=== PATIENT | female | born 1950 | race Caucasian/White ===

== ENCOUNTER 2023-12-10 16:06 | Observation (INO) ==
[2023-12-10 16:41] LABS: Basophils # (auto) 0.08 K/uL (0.00-0.20); Basophils % (auto) 0.9 %; Eosinophils # (auto) 0.37 K/uL (0.00-0.50); Eosinophils % (auto) 4.1 %; Hematocrit (blood only) 42.5 % (37.0-47.0); Hemoglobin 13.3 g/dl (12.0-16.0); Immature Granulocytes # (auto) 0.03 K/uL (0.01-0.20); Immature Granulocytes % (auto) 0.3 %; Lymphocytes # (auto) 2.29 K/uL (1.20-3.40); Lymphocytes % (auto) 25.5 %; Mean Corpuscular Hemoglobin 28.7 pg (25.0-34.0); Mean Corpuscular Hgb Conc 31.3 g/dL (32.0-36.0); Mean Corpuscular Volume 91.6 fL (80.0-100.0); Mean Platelet Volume 10.1 fL (9.4-12.4); Monocytes # (auto) 0.64 K/uL (0.11-0.59); Monocytes % (auto) 7.1 %; Neutrophils # (auto) 5.56 K/uL (1.40-6.50); Neutrophils % (auto) 62.1 %; Platelet Count 316 K/uL (130-400); RDW Coefficient of Variation 13.6 % (11.5-14.5); RDW Standard Deviation 45.5 fL (36.4-46.3); Red Blood Count 4.64 M/uL (4.20-5.40); White Blood Count 8.97 K/ul (4.8-10.8)
[2023-12-10 16:48] LABS: INR 0.9 (0.9-1.1); Partial Thromboplastin Time 27 Seconds (21-31); Prothrombin Time 10.1 Seconds (9.0-12.0)
[2023-12-10 16:58] LABS: Alanine Aminotransferase 10 U/L (7-52); Albumin Globulin Ratio 1.1 (0.9-2); Albumin Level 3.7 gm/dl (3.4-5.0); Alkaline Phosphatase 104 U/L (34-104); Anion Gap 5 (3-11); Aspartate Aminotransferase 16 U/L (13-39); BUN Creatinine Ratio 21.8 (10-20); Bilirubin,Total 0.2 mg/dl (0.2-1.0); Blood Urea Nitrogen 19 mg/dl (6-23); Calcium 9.2 mg/dl (8.6-10.3); Carbon Dioxide 28 mmol/L (21-32); Chloride 108 mmol/L (98-107); Est GFR (African American) 76.6 ml/min; Est GFR (Non-African American) 66.1 ml/min; Globulin 3.3 gm/dl (2.5-4.0); Glucose 89 mg/dl (70-99(Fasting)); Potassium 4.2 mmol/L (3.5-5.1); Sodium 141 mmol/L (136-145)
--- NOTE | 2023-12-10 18:26 | Emergency Department Note ---
Impression & Plan Fatigue, Hypotension, Pulmonary edema, Elevated brain natriuretic peptide (BNP) level ED Provider Note ED Provider Note NAME: GABBI FIELD AGE:73 SEX: Female : 1950 ARRIVES VIA: EMS INFORMANT: Patient ED PROVIDER(s): Cathi Palma DO CHIEF COMPLAINT: Hypotension, fatigue HPI: This is a 73-year-old female brought in by EMS due to family's concern for low blood pressure and increased fatigue today. At bedside patient denied any concerns and was asking to be discharged. She states she did not know why she was sent in. Upon arrival with family at bedside they state over the last 2 weeks she has had intermittent low blood pressure readings at home as they checked her blood pressure frequently. They state today she seemed much more fatigued and somnolent. 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 He denies any recent change in medications. They deny fevers, chills, or URI symptoms. No change in urine or stools. Patient denies any pain. Family states she did complain of a headache earlier in the day although frequently complains of headaches. No falls or trauma. They state patient typically moves about the house in her wheelchair. She does live at home however they have 24/7 caregivers in addition to family who help. PAST MEDICAL HISTORY:See Below PAST SURGICAL HISTORY:See Below FAMILY HISTORY:See Below SOCIAL HISTORY:See Below HOME MEDICATIONS:See Below ALLERGIES:See Below VITALS:See Below PHYSICAL EXAMINATION: GENERAL: alert, well appearing, well nourished, no distress, non-toxic EYE EXAM: normal conjunctiva, PERRL and EOM's grossly intact OROPHARYNX: no exudate, no erythema, lips, buccal mucosa, and tongue normal and mucous membranes are moist NECK: supple, no nuchal rigidity, no adenopathy, non-tender LUNGS: Clear to auscultation. Normal chest wall mechanics, no w/r/r HEART: no murmurs, S1 normal and S2 normal ABDOMEN: abdomen soft, non-tender, normo-active bowel sounds, no masses, no rebound or guarding. SKIN: no rashes, petechiae, orbruising UPPER EXTREMITIES: upper extremities are grossly normal. FROM LUE, nml pulses b/l. Right upper extremity hemiparesis with muscular atrophy and contraction with arm held in flexion LOWER EXTREMITIES: No pitting edema. FROM LLE, nml pulses b/l. Right lower extremity weakness and muscular atrophy NEURO EXAM: Normal sensorium, cranial nerves II-XII grossly intact, normal speech, no facial droop,nogross weakness of arms, no gross weakness of legs. Gross sensation intact. No ataxia. Vital Signs: reviewed and remarkable Differential Diagnosis: dehydration, stroke, anemia, hypoglycemia, hyponatremia, hypernatremia, urinary tract infection, pneumonia, bronchitis, sepsis, gastroenteritis, additional abdominal pathology, metabolic abnormalities, as well as others were considered MEDICAL DECISION MAKING: This is a 73-year-old female with a history of prior large stroke who presents emergency department via EMS due to family concern for hypotension, and increased fatigue. Patient was awake and alert and able to answer questions on arrival. She was normotensive and other vital signs stable. Labs drawn and sent, IV established, EKG and chest ray performed bedside interpreted by me and patient monitored on telemetry. Nasal swab added to rule out other acute URI. Urine collected additionally. Patient noted to have bilateral pulmonary edema on chest x-ray. Troponin and BNP added additionally. Patient's BNP was noted to be elevated. Given patient had no prior cardiac history and is unclear what may have started this, we discussed additional inpatient management. Patient and family at bedside verbalized understanding were in agreement. Case discussed with the hospitalist team for additional evaluation and management. Consultation(s): 2301: Discussed with Dr. Conklin, [facility] hospitalist team, for additional evaluation and management. ER Treatment Provided: See below Diagnostics Interpreted By Me: -ECG: Sinus bradycardia at 58, normal axis, normal intervals, no acute ST/T wave changes -Cardiac Monitoring: An order was placed for continuous cardiac monitoring. The monitor shows a rate of 62 with normal sinus rhythm. -Laboratory studies: As stated above and show below. -Imaging studies: Chest x-ray: No obvious infiltrate or pleural effusion, appearance of bilateral pulmonary edema noted, no wide mediastinum Triage Nursing Note Reviewed Prior/Outside Records Reviewed Past Med/Surg History Social History Smoking Status: Never smoker Do You Dip or Chew Tobacco: No; Hx Alcohol Use: No Hx Substance Use: No Preferred Language: Jordanian Communication Ability: Effective Casino Accountant Required: No Beliefs That Will Affect Care: None Current Living Situation: Spouse and Significant Other Current Living Situation Comment: 25/02 caregiver Feels Safe at Home: Yes Safety Concerns: Feels Safe At This Time Assistive Devices: Wheelchair Allergies Allergies Allergy/AdvReac Type Severity Reaction Status Date / Time azithromycin Allergy Unknown CAN'T Verified 12/11/23 07:40 REMEMBER Penicillins Allergy Unknown CAN'T Verified 12/11/23 07:40 REMEMBER simvastatin Allergy Unknown CAN'T Verified 12/11/23 07:40 REMEMBER baclofen AdvReac Intermediate LETHARGY Verified 12/11/23 07:40 levetiracetam AdvReac Intermediate LETHARGY Verified 12/11/23 07:40 sulfamethoxazole AdvReac Intermediate NAUSEA/VOMI Verified 12/11/23 07:40 [From Bactrim] TING tramadol AdvReac Intermediate TOO Verified 12/11/23 07:40 SLEEPY, LOST APPETITE trimethoprim [From Bactrim] AdvReac Intermediate NAUSEA/VOMI Verified 12/11/23 07:40 TING mirtazapine AdvReac Unknown CAN'T Verified 12/11/23 07:40 REMEMBER Home Meds Home Medications Medication Instructions Recorded Confirmed acetaminophen 500 mg tablet 1,000 mg PO BID 10/28/23 10/28/23 (Tylenol Extra Strength) aspirin 325 mg tablet,delayed 325 mg PO DAILY 10/28/23 10/28/23 release citalopram 40 mg tablet (Celexa) 40 mg PO DAILY 10/28/23 10/28/23 docusate sodium 100 mg capsule 100 mg PO BID 10/28/23 10/28/23 gabapentin 400 mg capsule 400 mg PO TID 10/28/23 10/28/23 melatonin 5 mg tablet 5 mg PO HS 10/28/23 10/28/23 metoprolol succinate 25 mg 25 mg PO DAILY 10/28/23 10/28/23 tablet,extended release 24 hr multivitamin 1 tab PO DAILY 10/28/23 10/28/23 ondansetron HCl 8 mg tablet 8 mg PO Q8H PRN NAUSEA/VOMITING 10/28/23 10/28/23 pantoprazole 40 mg tablet,delayed 40 mg PO DAILY 10/28/23 10/28/23 release polyethylene glycol 3350 17 17 g PO DAILY PRN Constipation 10/28/23 10/28/23 gram/dose oral powder (Miralax) potassium chloride 10 mEq 10 meq PO BID 10/28/23 10/28/23 tablet,extended release(part/cryst) (Klor-Con M) topiramate 100 mg tablet 100 mg PO BID 10/28/23 10/28/23 acetaminophen 500 mg tablet 1,000 mg PO BID 12/10/23 12/10/23 (Tylenol Extra Strength) aspirin 325 mg tablet 325 mg PO DAILY 12/10/23 12/10/23 citalopram 40 mg tablet (Celexa) 40 mg PO DAILY 12/10/23 12/10/23 gabapentin 400 mg capsule 400 mg PO TID 12/10/23 12/10/23 melatonin 5 mg tablet 5 mg PO HS 12/10/23 12/10/23 metoprolol succinate 25 mg 25 mg PO DAILY 12/10/23 12/10/23 tablet,extended release 24 hr multivitamin 1 tab PO DAILY 12/10/23 12/10/23 ondansetron HCl 8 mg tablet 8 mg PO Q8H PRN Nausea 12/10/23 12/10/23 pantoprazole 40 mg tablet,delayed 40 mg PO DAILY 12/10/23 12/10/23 release polyethylene glycol 3350 17 17 g PO DAILY PRN Constipation 12/10/23 12/10/23 gram/dose oral powder (Miralax) potassium chloride 10 mEq 10 meq PO BID 12/10/23 12/10/23 tablet,extended release(part/cryst) (Klor-Con M) topiramate 100 mg tablet 100 mg PO BID 12/10/23 12/10/23 Results & Data (ED) Vital Signs Vital Signs - 24 hr 12/11/23 00:00 12/11/23 00:00 12/11/23 00:24 Pulse Rate 58 L 57 L Pulse Rate [Left Apical] 58 L Pulse Rate from SpO2 Sensor 57 L 56 L Pulse Rhythm [Left Apical] Regular Pulse Strength [Left Apical] Normal Respiratory Rate 22 16 21 Respiratory Effort / Characteristics Non-Labored Respiratory Depth Normal Respiratory Pattern Regular Blood Pressure Blood Pressure [Left Arm] 144/58 H Blood Pressure Mean Blood Pressure Mean [Left Arm] 86 Pulse Oximetry 95 92 97 Oxygen Delivery Method Room Air 12/11/23 00:24 12/11/23 00:30 Pulse Rate 56 L Pulse Rate [Left Apical] Pulse Rate from SpO2 Sensor 54 L Pulse Rhythm [Left Apical] Pulse Strength [Left Apical] Respiratory Rate 18 Respiratory Effort / Characteristics Respiratory Depth Respiratory Pattern Blood Pressure 144/58 H Blood Pressure [Left Arm] Blood Pressure Mean 78 Blood Pressure Mean [Left Arm] Pulse Oximetry 91 Oxygen Delivery Method Laboratory Data 12/11/23 06:14 12/11/23 06:14 Lab Results 12/10/23 12/10/23 12/10/23 Range/Units 16:25 20:08 20:11 WBC 8.97 (4.8-10.8) K/ul RBC 4.64 (4.20-5.40) M/uL Hgb 13.3 (12.0-16.0) g/dl Hct 42.5 (37.0-47.0) % MCV 91.6 (80.0-100.0) fL MCH 28.7 (25.0-34.0) pg MCHC 31.3 L (32.0-36.0) g/dL RDW Std Deviation 45.5 (36.4-46.3) fL RDW Coeff of Carol 13.6 (11.5-14.5) % Plt Count 316 (130-400) K/uL MPV 10.1 (9.4-12.4) fL Immature Gran % (Auto) 0.3 % Neut % (Auto) 62.1 % Lymph % (Auto) 25.5 % [place] % (Auto) 7.1 % Eos % (Auto) 4.1 % Baso % (Auto) 0.9 % Neut # (Auto) 5.56 (1.40-6.50) K/uL Lymph # (Auto) 2.29 (1.20-3.40) K/uL [place] # (Auto) 0.64 H (0.11-0.59) K/uL Eos # (Auto) 0.37 (0.00-0.50) K/uL Baso # (Auto) 0.08 (0.00-0.20) K/uL Immature Gran # (Auto) 0.03 (0.01-0.20) K/uL PT 10.1 (9.0-12.0) Seconds INR 0.9 (0.9-1.1) APTT 27 (21-31) Seconds PTT Ratio 1.0 Sodium 141 (136-145) mmol/L Potassium 4.2 (3.5-5.1) mmol/L Chloride 108 H (98-107) mmol/L Carbon Dioxide 28 (21-32) mmol/L Anion Gap 5 (3-11) BUN 19 (6-23) mg/dl Creatinine 0.87 (0.6-1.2) mg/dl Est Cr Clr Drug Dosing Not Reportable Est GFR ( Amer) 76.6 ml/min Est GFR (Non-Af Amer) 66.1 ml/min BUN/Creatinine Ratio 21.8 H (10-20) Glucose 89 (70-99(Fasting)) mg/dl Calcium 9.2 (8.6-10.3) mg/dl Magnesium 2.2 (1.7-2.4) mg/dl Total Bilirubin 0.2 (0.2-1.0) mg/dl AST 16 (13-39) U/L ALT 10 (7-52) U/L Alkaline Phosphatase 104 (34-104) U/L Troponin I High Sens 7.2 (0-14) pg/ml B-Natriuretic Peptide 378 H (0-100) pg/ml Total Protein 7.0 (6.0-8.3) gm/dl Albumin 3.7 (3.4-5.0) gm/dl Globulin 3.3 (2.5-4.0) gm/dl Albumin/Globulin Ratio 1.1 (0.9-2) TSH 0.123 L (0.300-4.500) uIu/ml Free T4 0.73 (0.61-1.60) ng/dl Adenovirus (PCR) Not Detected (NotDetected) B. pertussis DNA (PCR) Not Detected (NotDetected) B.parapertussis DNA PCR Not Detected (NotDetected) Lyme Disease Screen Negative (Negative) C. pneumoniae DNA (PCR) Not Detected (NotDetected) Coronavirus OC43 (PCR) Not Detected (NotDetected) Coronavirus HKU1 (PCR) Not Detected (NotDetected) Coronavirus 229E (PCR) Not Detected (NotDetected) SARS-CoV-2 (PCR) Not Detected (NotDetected) Coronavirus NL63 (PCR) Not Detected (NotDetected) Human Metapneumovir PCR Not Detected (NotDetected) Influenza Type A (PCR) Not Detected (NotDetected) Influenza Type B (PCR) Not Detected (NotDetected) M. pneumoniae (PCR) Not Detected (NotDetected) Parainfluenza 1 (PCR) Not Detected (NotDetected) Parainfluenza 2 (PCR) Not Detected (NotDetected) Parainfluenza 3 (PCR) Not Detected (NotDetected) Parainfluenza 4 (PCR) Not Detected (NotDetected) RSV (PCR) Not Detected (NotDetected) Entero/Rhino (PCR) Not Detected (NotDetected) Administered Medications Aspirin (Aspirin 325 Mg Ectab) 325 mg PO DAILY [facility] Stop: 01/10/24 08:59 Last Admin: 12/11/23 08:45 Dose: 325 mg Documented By: SRL Citalopram Hydrobromide (Citalopram 40 Mg Tab) 40 mg PO DAILY [facility] Stop: 01/10/24 08:59 Last Admin: 12/11/23 08:45 Dose: 40 mg Documented By: SRL Clindamycin HCl (Clindamycin Hcl 150 Mg Cap) 600 mg PO TID [facility] Stop: 12/18/23 13:59 Last Admin: 12/11/23 19:35 Dose: 600 mg Documented By: Admin: 12/11/23 14:14 Dose: 600 mg Documented By: SRL Enoxaparin Sodium (Enoxaparin Inj 40 Mg/0.4 Ml Syr) [facility] [place]: 01/10/24 08:59 Last Admin: 12/11/23 08:44 Dose: 40 mg Documented By: Admin: 12/11/23 07:41 Dose: Not Given Documented By: SRL Enoxaparin Sodium (Enoxaparin Inj 40 Mg/0.4 Ml Syr) 40 mg SQ QAM [facility] Stop: 01/10/24 08:59 Last Admin: 12/11/23 08:46 Dose: 40 mg Documented By: SRL Gabapentin (Gabapentin 400 Mg Cap) 400 mg PO TID [facility] Stop: 01/10/24 08:59 Last Admin: 12/11/23 19:35 Dose: 400 mg Documented By: Admin: 12/11/23 14:14 Dose: 400 mg Documented By: Admin: 12/11/23 08:45 Dose: 400 mg Documented By: SRL Lactobacillus Acidophilus (Advanced Probiotic 625 Mg Capsule) 1,250 mg PO DAILY PRASHANTH Stop: 01/10/24 19:29 Last Admin: 12/11/23 21:54 Dose: 1,250 mg Documented By: AMM Melatonin (Melatonin 3 Mg Tab) 3 mg PO HS PRASHANTH Stop: 01/10/24 20:59 Last Admin: 12/11/23 19:35 Dose: 3 mg Documented By: AMM Metoprolol Succinate (Metoprolol Succ 25mg Ext Rel Tab) 25 mg PO DAILY PRASHANTH Stop: 01/10/24 08:59 Last Admin: 12/11/23 08:45 Dose: 25 mg Documented By: SRL Multivitamins (Multivitamin Tab) 1 tab PO DAILY PRASHANTH Stop: 01/10/24 08:59 Last Admin: 12/11/23 08:45 Dose: 1 tab Documented By: SRL Pantoprazole Sodium (Pantoprazole 40 Mg Tab) 40 mg PO DAILY PRASHANTH Stop: 01/10/24 08:59 Last Admin: 12/11/23 08:46 Dose: 40 mg Documented By: SRL Topiramate (Topiramate 100 Mg Tab) 100 mg PO BID PRASHANTH Stop: 01/10/24 08:59 Last Admin: 12/11/23 19:35 Dose: 100 mg Documented By: Admin: 12/11/23 08:46 Dose: 100 mg Documented By: SRL Discontinued Medications Furosemide (Furosemide Inj 20 Mg/2 Ml Vial) 20 mg IV ONE ONE Stop: 12/10/23 22:59 Last Admin: 12/10/23 23:25 Dose: 20 mg Documented By: CHRIS Sodium Chloride (Nss) 1,000 mls @ 250 mls/hr IV .Q4H PRASHANTH Stop: 01/09/24 18:29 Last Admin: 12/10/23 23:02 Dose: Not Given Documented By: Infusion: 12/10/23 23:01 Dose: Infused Documented By: Admin: 12/10/23 20:35 Dose: 250 mls/hr Documented By: ANTONIO Clindamycin Phosphate (Cleocin/D5w) 600 mg in 50 mls @ 100 mls/hr IV NOW ONE Stop: 12/11/23 02:44 Last Infusion: 12/11/23 03:23 Dose: Infused Documented By: Admin: 12/11/23 02:44 Dose: 100 mls/hr Documented By: CHRIS Imaging Data Radiologist's Impression: Head CT 12/10/23 16:16 Exam(s): CT HEAD Without Contrast EXAM: CT Head Without Intravenous Contrast CLINICAL HISTORY: Reason for exam: dizziness/headache. TECHNIQUE: Axial computed tomography images of the head/brain without intravenous contrast. CTDI is 64.94 mGy and DLP is 1098.96 mGy-cm. Automated exposure control was utilized for the study. A dose lowering technique was utilized adhering to the principles of ALARA. COMPARISON: No relevant prior studies available. FINDINGS: No acute intracranial hemorrhage. No midline shift or mass effect. Encephalomalacia in the LEFT MCA territory, consistent with old infarct. Age-related cerebral volume loss. Periventricular and subcortical white matter hypoattenuation, consistent with chronic microangiopathy. The visualized orbits appear grossly unremarkable. The calvarium is intact. The visualized paranasal sinuses and mastoid air cells are grossly clear. IMPRESSION: No acute intracranial hemorrhage, midline shift, or mass effect. Encephalomalacia in the LEFT MCA territory, consistent with old infarct. Electronically signed by: Carson Chaves MD 12/10/23 21:14 PM Chest X-Ray 12/10/23 18:12 XR chest 1V portable CLINICAL HISTORY: fatigue, ?aspiration COMPARISON STUDY: No previous studies for comparison. FINDINGS: There is mild elevation of the right hemidiaphragm. No pneumothorax or pleural effusion is present. There is moderate enlargement of the cardiac silhouette. There is pulmonary vascular congestion without overt pulmonary edema. No consolidation is present. IMPRESSION: Cardiomegaly with pulmonary vascular congestion. ACT 112: Negative or not required by law. Electronically signed by: Radhames Ball M.D. 12/10/2023 7:14 PM Discharge Plan Visit Data Chief Complaint: Headache Stated Complaint: HEADACHE, HYPOTENSION, ED Provider: Cathi Palma Discharge Problem: Fatigue, Hypotension, Pulmonary edema, Elevated brain natriuretic peptide (BNP) level Patient Disposition: Admitted As Inpatient Discharge Instructions Interventions: ED Discharge Assessment Last Done: 12/11/23 03:35
[2023-12-10 18:43] LABS: Magnesium 2.2 mg/dl (1.7-2.4)
[2023-12-10 18:58] LABS: Thyroid Stimulating Hormone 0.123 uIu/ml (0.300-4.500)
--- NOTE | 2023-12-10 19:15 | XRay Report ---
XR chest 1V portable CLINICAL HISTORY: fatigue, ?aspiration COMPARISON STUDY: No previous studies for comparison. FINDINGS: There is mild elevation of the right hemidiaphragm. No pneumothorax or pleural effusion is present. There is moderate enlargement of the cardiac silhouette. There is pulmonary vascular congest ion without overt pulmonary edema. No consolidation is present. IMPRESSION: Cardiomegaly with pulmonary vascular congestion. ACT 112: Negative or not required by law. Electronically signed by: Radhames Ball M.D. 12/10/2023 7:14 PM
[2023-12-10 19:33] LABS: T4 Free Thyroxine 0.73 ng/dl (0.61-1.60)
[2023-12-10] MEDS: SODIUM CHLORIDE 0.9% 1,000 ML IV SCH (20:35)
--- NOTE | 2023-12-10 21:15 | CT Scan Report ---
Exam(s): CT HEAD Without Contrast EXAM: CT Head Without Intravenous Contrast CLINICAL HISTORY: Reason for exam: dizziness/headache. TECHNIQUE: Axial computed tomography images of the head/brain without intravenous contrast. CTDI is 64.94 mGy and DLP is 1098.96 mGy-cm. Automated exposure control was utilized for the study. A dose lowering technique was utilized adhering to the principles of ALARA. COMPARISON: No relevant prior studies available. FINDINGS: No acute intracranial hemorrhage. No midline shift or mass effect. Encephalomalacia in the LEFT MCA territory, consistent with old infarct. Age-related cerebral volume loss. Periventricular and subcortical white matter hypoattenuation, consistent with chronic microangiopathy. The visualized orbits appear grossly unremarkable. The calvarium is intact. The visualized paranasal sinuses and mastoid air cells are grossly clear. IMPRESSION: No acute intracranial hemorrhage, midline shift, or mass effect. Encephalomalacia in the LEFT MCA territory, consistent with old infarct. Electronically signed by: Carson Chaves MD 12/10/23 21:14 PM
[2023-12-10 21:30] LABS: Adenovirus PCR Not Detected (NotDetected); Bordetella parapertussis PCR Not Detected (NotDetected); Bordetella pertussis PCR Not Detected (NotDetected); Chlamydia pneumoniae PCR Not Detected (NotDetected); Coronavirus 229E PCR Not Detected (NotDetected); Coronavirus CoV-2 (COVID19)PCR Not Detected (NotDetected); Coronavirus HKU1 PCR Not Detected (NotDetected); Coronavirus NL63 PCR Not Detected (NotDetected); Coronavirus OC43PCR Not Detected (NotDetected); Human Metapneumovirus PCR Not Detected (NotDetected); Influenza A PCR Not Detected (NotDetected); Influenza B PCR Not Detected (NotDetected); Mycoplasma pneumoniae PCR Not Detected (NotDetected); Parainfluenza Virus 1 PCR Not Detected (NotDetected); Parainfluenza Virus 2 PCR Not Detected (NotDetected); Parainfluenza Virus 3 PCR Not Detected (NotDetected); Parainfluenza Virus 4 PCR Not Detected (NotDetected); Respiratory Syncytial VirusPCR Not Detected (NotDetected); Rhinovirus/Enterovirus PCR Not Detected (NotDetected)
[2023-12-10] MEDS: FUROSEMIDE INJ 20 MG/2 ML VIAL IV ONE (23:25)
--- NOTE | 2023-12-11 01:02 | History & Physical Report ---
Date of Service December 11, 2023 History of Present Illness Chief Complaint: Shortness of breath, low blood pressure, choking Primary Care Provider: Dr. Perez History obtained from patient and records. Medical history significant for hypertension, hyperlipidemia/statin intolerance, CVA, PVD, seizure disorder, multiple sclerosis, GERD, anxiety/mood disorder. Caregiver has not this patient choking on things for the last few weeks. Shortness of breath with intermittent wheezing symptoms at home. Patient denies chest pain. Patient not sure about weight gain. Achy headache symptoms from migraine as per patient.. Patient more tired than usual. Low blood pressure noted at home. SBP 50s to 80s. Patient seen at PCP's office yesterday. SBP 100s, O2 sats noted to be 80s. Patient noted to be lethargic. Patient transported to ER by EMS. IV Lasix administered at the ER. 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 Allergies Allergy/AdvReac Type Severity Reaction Status Date / Time azithromycin Allergy Unknown CAN'T Verified 12/11/23 07:40 REMEMBER Penicillins Allergy Unknown CAN'T Verified 12/11/23 07:40 REMEMBER simvastatin Allergy Unknown CAN'T Verified 12/11/23 07:40 REMEMBER baclofen AdvReac Intermediate LETHARGY Verified 12/11/23 07:40 levetiracetam AdvReac Intermediate LETHARGY Verified 12/11/23 07:40 sulfamethoxazole AdvReac Intermediate NAUSEA/VOMI Verified 12/11/23 07:40 [From Bactrim] TING tramadol AdvReac Intermediate TOO Verified 12/11/23 07:40 SLEEPY, LOST APPETITE trimethoprim [From Bactrim] AdvReac Intermediate NAUSEA/VOMI Verified 12/11/23 07:40 TING mirtazapine AdvReac Unknown CAN'T Verified 12/11/23 07:40 REMEMBER Home Medications Medication Instructions Recorded Confirmed Type acetaminophen 500 mg tablet 1,000 mg PO BID 10/28/23 10/28/23 History (Tylenol Extra Strength) aspirin 325 mg tablet,delayed 325 mg PO DAILY 10/28/23 10/28/23 History release citalopram 40 mg tablet (Celexa) 40 mg PO DAILY 10/28/23 10/28/23 History docusate sodium 100 mg capsule 100 mg PO BID 10/28/23 10/28/23 History gabapentin 400 mg capsule 400 mg PO TID 10/28/23 10/28/23 History melatonin 5 mg tablet 5 mg PO HS 10/28/23 10/28/23 History metoprolol succinate 25 mg 25 mg PO DAILY 10/28/23 10/28/23 History tablet,extended release 24 hr multivitamin 1 tab PO DAILY 10/28/23 10/28/23 History ondansetron HCl 8 mg tablet 8 mg PO Q8H PRN NAUSEA/VOMITING 10/28/23 10/28/23 History pantoprazole 40 mg tablet,delayed 40 mg PO DAILY 10/28/23 10/28/23 History release polyethylene glycol 3350 17 17 g PO DAILY PRN Constipation 10/28/23 10/28/23 History gram/dose oral powder (Miralax) potassium chloride 10 mEq 10 meq PO BID 10/28/23 10/28/23 History tablet,extended release(part/cryst) (Klor-Con M) topiramate 100 mg tablet 100 mg PO BID 10/28/23 10/28/23 History acetaminophen 500 mg tablet 1,000 mg PO BID 12/10/23 12/10/23 History (Tylenol Extra Strength) aspirin 325 mg tablet 325 mg PO DAILY 12/10/23 12/10/23 History citalopram 40 mg tablet (Celexa) 40 mg PO DAILY 12/10/23 12/10/23 History gabapentin 400 mg capsule 400 mg PO TID 12/10/23 12/10/23 History melatonin 5 mg tablet 5 mg PO HS 12/10/23 12/10/23 History metoprolol succinate 25 mg 25 mg PO DAILY 12/10/23 12/10/23 History tablet,extended release 24 hr multivitamin 1 tab PO DAILY 12/10/23 12/10/23 History ondansetron HCl 8 mg tablet 8 mg PO Q8H PRN Nausea 12/10/23 12/10/23 History pantoprazole 40 mg tablet,delayed 40 mg PO DAILY 12/10/23 12/10/23 History release polyethylene glycol 3350 17 17 g PO DAILY PRN Constipation 12/10/23 12/10/23 History gram/dose oral powder (Miralax) potassium chloride 10 mEq 10 meq PO BID 12/10/23 12/10/23 History tablet,extended release(part/cryst) (Klor-Con M) topiramate 100 mg tablet 100 mg PO BID 12/10/23 12/10/23 History Past Med/Surg History Social History Smoking Status: Never smoker Preferred Language: [place] Feels Safe at Home: Yes Review of Systems Review of Systems: As per HPI, all other systems reviewed and negative Physical Exam Physical Exam: GENERAL: Comfortable, pleasant, obese, dysarthric (chronic), no respiratory distress SKIN: Normal color, warm HEENT: [place] palpebral conjunctivae, no ptosis, dry buccal mucosa NECK : Supple, short neck, no tenderness CHEST : CTA, no tenderness HEART : Bradycardic, no obvious murmurs ABDOMEN: Some distention, nontender EXTREMITIES : No LE swelling, no LE tenderness, no other conspicuous deformities noted NEUROLOGIC : Coherent, no facial asymmetry, dysarthric, gait and stance not assessed Results & Data Results & Data Vital Signs (Past 12 Hours) Vital Signs Temp Pulse Pulse Resp BP BP Pulse Ox 12/10/23 22:24 58 L 19 140/57 L 97 12/10/23 21:31 57 L 19 114/57 L 97 12/10/23 21:24 59 L 12/10/23 20:34 59 L 18 130/84 95 12/10/23 20:02 56 L 15 135/59 L 97 12/10/23 19:02 55 L 20 119/63 98 12/10/23 18:32 59 L 16 132/65 98 12/10/23 18:02 57 L 17 115/62 98 12/10/23 17:32 59 L 12/10/23 17:25 61 17 152/70 H 96 12/10/23 16:13 36.9 C 60 19 101/66 93 O2 Del Method 12/10/23 22:24 Room Air 12/10/23 21:31 Room Air 12/10/23 21:24 12/10/23 20:34 Room Air 12/10/23 20:02 Room Air 12/10/23 19:02 Room Air 12/10/23 18:32 Room Air 12/10/23 18:02 Room Air 12/10/23 17:32 12/10/23 17:25 Room Air 12/10/23 16:13 Room Air Laboratory Results Laboratory Results WBC 8.97 K/ul (4.8-10.8) 12/10/23 16:25 RBC 4.64 M/uL (4.20-5.40) 12/10/23 16:25 Hgb 13.3 g/dl (12.0-16.0) 12/10/23 16:25 Hct 42.5 % (37.0-47.0) 12/10/23 16:25 MCV 91.6 fL (80.0-100.0) 12/10/23 16:25 MCH 28.7 pg (25.0-34.0) 12/10/23 16: MCHC 31.3 g/dL (32.0-36.0) L 12/10/23 16:25 RDW Std Deviation 45.5 fL (36.4-46.3) 12/10/23 16: RDW Coeff of Carol 13.6 % (11.5-14.5) 12/10/23 16:25 Plt Count 316 K/uL (130-400) 12/10/23 16:25 MPV 10.1 fL (9.4-12.4) 12/10/23 16:25 Immature Gran % (Auto) 0.3 % 12/10/23 16:25 Neut % (Auto) 62.1 % 12/10/23 16:25 Lymph % (Auto) 25.5 % 12/10/23 16:25 [place] % (Auto) 7.1 % 12/10/23 16:25 Eos % (Auto) 4.1 % 12/10/23 16:25 Baso % (Auto) 0.9 % 12/10/23 16:25 Neut # (Auto) 5.56 K/uL (1.40-6.50) 12/10/23 16:25 Lymph # (Auto) 2.29 K/uL (1.20-3.40) 12/10/23 16:25 [place] # (Auto) 0.64 K/uL (0.11-0.59) H 12/10/23 16:25 Eos # (Auto) 0.37 K/uL (0.00-0.50) 12/10/23 16:25 Baso # (Auto) 0.08 K/uL (0.00-0.20) 12/10/23 16:25 Immature Gran # (Auto) 0.03 K/uL (0.01-0.20) 12/10/23 16:25 PT 10.1 Seconds (9.0-12.0) 12/10/23 16:25 INR 0.9 (0.9-1.1) 12/10/23 16:25 APTT 27 Seconds (21-31) 12/10/23 16:25 PTT Ratio 1.0 12/10/23 16:25 Sodium 141 mmol/L (136-145) 12/10/23 16:25 Potassium 4.2 mmol/L (3.5-5.1) 12/10/23 16:25 Chloride 108 mmol/L (98-107) H 12/10/23 16:25 Carbon Dioxide 28 mmol/L (21-32) 12/10/23 16:25 Anion Gap 5 (3-11) 12/10/23 16:25 BUN 19 mg/dl (6-23) 12/10/23 16:25 Creatinine 0.87 mg/dl (0.6-1.2) 12/10/23 16:25 Est Cr Clr Drug Dosing Not Reportable 12/10/23 16:25 Est GFR ( Amer) 76.6 ml/min 12/10/23 16:25 Est GFR (Non-Af Amer) 66.1 ml/min 12/10/23 16:25 BUN/Creatinine Ratio 21.8 (10-20) H 12/10/23 16:25 Glucose 89 mg/dl (70-99(Fasting)) 12/10/23 16:25 Calcium 9.2 mg/dl (8.6-10.3) 12/10/23 16:25 Magnesium 2.2 mg/dl (1.7-2.4) 12/10/23 16:25 Total Bilirubin 0.2 mg/dl (0.2-1.0) 12/10/23 16:25 AST 16 U/L (13-39) 12/10/23 16:25 ALT 10 U/L (7-52) 12/10/23 16:25 Alkaline Phosphatase 104 U/L (34-104) 12/10/23 16:25 Troponin I High Sens 7.2 pg/ml (0-14) 12/10/23 20:11 B-Natriuretic Peptide 378 pg/ml (0-100) H 12/10/23 20:11 Total Protein 7.0 gm/dl (6.0-8.3) 12/10/23 16:25 Albumin 3.7 gm/dl (3.4-5.0) 12/10/23 16:25 Globulin 3.3 gm/dl (2.5-4.0) 12/10/23 16:25 Albumin/Globulin Ratio 1.1 (0.9-2) 12/10/23 16:25 TSH 0.123 uIu/ml (0.300-4.500) L 12/10/23 16:25 Free T4 0.73 ng/dl (0.61-1.60) 12/10/23 16:25 Adenovirus (PCR) Not Detected (NotDetected) 12/10/23 20:08 B. pertussis DNA (PCR) Not Detected (NotDetected) 12/10/23 20:08 B.parapertussis DNA PCR Not Detected (NotDetected) 12/10/23 20:08 C. pneumoniae DNA (PCR) Not Detected (NotDetected) 12/10/23 20:08 Coronavirus OC43 (PCR) Not Detected (NotDetected) 12/10/23 20:08 Coronavirus HKU1 (PCR) Not Detected (NotDetected) 12/10/23 20:08 Coronavirus 229E (PCR) Not Detected (NotDetected) 12/10/23 20:08 SARS-CoV-2 (PCR) Not Detected (NotDetected) 12/10/23 20:08 Coronavirus NL63 (PCR) Not Detected (NotDetected) 12/10/23 20:08 Human Metapneumovir PCR Not Detected (NotDetected) 12/10/23 20:08 Influenza Type A (PCR) Not Detected (NotDetected) 12/10/23 20:08 Influenza Type B (PCR) Not Detected (NotDetected) 12/10/23 20:08 M. pneumoniae (PCR) Not Detected (NotDetected) 12/10/23 20:08 Parainfluenza 1 (PCR) Not Detected (NotDetected) 12/10/23 20:08 Parainfluenza 2 (PCR) Not Detected (NotDetected) 12/10/23 20:08 Parainfluenza 3 (PCR) Not Detected (NotDetected) 12/10/23 20:08 Parainfluenza 4 (PCR) Not Detected (NotDetected) 12/10/23 20:08 RSV (PCR) Not Detected (NotDetected) 12/10/23 20:08 Entero/Rhino (PCR) Not Detected (NotDetected) 12/10/23 20:[address] 12/10/23 16:16 Exam(s): CT HEAD Without Contrast EXAM: CT Head Without Intravenous Contrast CLINICAL HISTORY: Reason for exam: dizziness/headache. TECHNIQUE: Axial computed tomography images of the head/brain without intravenous contrast. CTDI is 64.94 mGy and DLP is 1098.96 mGy-cm. Automated exposure control was utilized for the study. A dose lowering technique was utilized adhering to the principles of ALARA. COMPARISON: No relevant prior studies available. FINDINGS: No acute intracranial hemorrhage. No midline shift or mass effect. Encephalomalacia in the LEFT MCA territory, consistent with old infarct. Age-related cerebral volume loss. Periventricular and subcortical white matter hypoattenuation, consistent with chronic microangiopathy. The visualized orbits appear grossly unremarkable. The calvarium is intact. The visualized paranasal sinuses and mastoid air cells are grossly clear. IMPRESSION: No acute intracranial hemorrhage, midline shift, or mass effect. Encephalomalacia in the LEFT MCA territory, consistent with old infarct. Electronically signed by: Carson Chaves MD 12/10/23 21:14 PM Chest X-Ray 12/10/23 18:12 XR chest 1V portable CLINICAL HISTORY: fatigue, ?aspiration COMPARISON STUDY: No previous studies for comparison. FINDINGS: There is mild elevation of the right hemidiaphragm. No pneumothorax or pleural effusion is present. There is moderate enlargement of the cardiac silhouette. There is pulmonary vascular congestion without overt pulmonary edema. No consolidation is present. IMPRESSION: Cardiomegaly with pulmonary vascular congestion. ACT 112: Negative or not required by law. Electronically signed by: Radhames Ball M.D. 12/10/2023 7:14 PM Diagnostic Findings EKG as per my interpretation : Rate 55, sinus bradycardia, normal axis, inferior infarct, anterolateral infarct, nonspecific T wave abnormalities, low voltage
[2023-12-11] MEDS ORDERED: PROMETHAZINE HCL 6.25 MG in SODIUM CHLORIDE 0.9% 50 ML IV PRN (01:13)
[2023-12-11] MEDS: CLINDAMYCIN/D5W 600 MG/50 ML BAG IV ONE (02:44)
[2023-12-11] MEDS ORDERED: POLYETHYLENE (MIRALAX) 17 GM PACK PO PRN (03:34)
[2023-12-11 03:41] LABS: Appearance Urine Clear (Clear); Bacteria Urine Automated 1+ (None Seen); Bilirubin Urine Negative (Negative); Blood Urine 3+ (Negative); Cast Urine Automated 0-2 /lpf (0-2); Color Urine Yellow; Epithelial Cell Urine Auto 0-2 /hpf (0-2); Glucose Urine UA Negative (Negative); Ketones Urine Negative (Negative); Leukocyte Esterase Urine Negative (Negative); Nitrite Urine Negative (Negative); Protein Urine Negative (Negative); Specific Gravity Urine 1.008 (1.000-1.030); Urobilinogen Urine Negative (Negative); WBC Urine Automated 0-5 /hpf (0-5); pH Urine 6.5 (4.5-7.5)
[2023-12-11 06:45] LABS: Basophils # (auto) 0.06 K/uL (0.00-0.20); Basophils % (auto) 0.6 %; Eosinophils # (auto) 0.27 K/uL (0.00-0.50); Eosinophils % (auto) 2.7 %; Hematocrit (blood only) 40.1 % (37.0-47.0); Immature Granulocytes # (auto) 0.05 K/uL (0.01-0.20); Immature Granulocytes % (auto) 0.5 %; Lymphocytes # (auto) 1.83 K/uL (1.20-3.40); Lymphocytes % (auto) 18.1 %; Mean Corpuscular Hemoglobin 29.1 pg (25.0-34.0); Mean Corpuscular Hgb Conc 32.4 g/dL (32.0-36.0); Mean Corpuscular Volume 89.9 fL (80.0-100.0); Mean Platelet Volume 10.3 fL (9.4-12.4); Monocytes # (auto) 0.65 K/uL (0.11-0.59); Monocytes % (auto) 6.4 %; Neutrophils # (auto) 7.27 K/uL (1.40-6.50); Neutrophils % (auto) 71.7 %; Platelet Count 251 K/uL (130-400); RDW Coefficient of Variation 13.6 % (11.5-14.5); RDW Standard Deviation 44.4 fL (36.4-46.3); Red Blood Count 4.46 M/uL (4.20-5.40); White Blood Count 10.13 K/ul (4.8-10.8)
[2023-12-11 07:21] LABS: Calcium 8.4 mg/dl (8.6-10.3); Creatinine Clr Calc Pharmacy 72.6 ml/min; Est GFR (African American) 83.5 ml/min; Est GFR (Non-African American) 72.1 ml/min; Potassium 4.1 mmol/L (3.5-5.1)
[2023-12-11] MEDS: ENOXAPARIN INJ 40 MG/0.4 ML SYR SQ SCH ×2 (07:41→08:46)
--- NOTE | 2023-12-11 08:36 | Cardiology Consultation ---
Date of Consultation December 11, 2023 Assessment & Plan (1) Fatigue: (2) Hypotension: (3) SOB (shortness of breath): Plan 73-year-old female admitted with fatigue, hypotension on home monitoring, possible aspiration pneumonitis. Examination without heart failure decompensation. EKG without acute ST segment change. High-sensitivity troponin negative x 2. Resting echocardiography pending. Recommendations: 1. Continue medical management. 2. Continue low-dose beta-alycia therapy 3. Continue aspirin. 4. Recommend retrial of lipid lowering therapy, statin 5. Further recommendations pending evaluation by Dr. Stern. I spent a total of 40 minutes on the date of service in preparation, delivery, and documentation of the care provided to this patient excluding any time spent in the performance of separately billed services. This visit was a split-shared visit with the substantive portion of the medical decision making performed by the supervising parts sales associate/billing provider. Supervising Physician Co-Signing Physician Notes I have reviewed the advance practitioner's documentation, and I agree with, and take responsibility for the plan of care. I have personally performed a history and physical examination on the patient. Patient personally examined. Currently comfortable without respiratory distress. Does admit to difficulties with swallowing, choking with eating and drinking. Current examination not consistent with congestive heart failure but has received single dose of furosemide. Echocardiogram with preserved systolic heart function, mild mitral sufficiency only I spent a total of 20 minutes on the date of service in preparation, delivery, and documentation of the care provided to this patient, excluding any time spent in the performance of separately billed services. History of Present Illness Reason for Consultation: Congestive heart failure Requesting Physician: Dr. Butler Attending Physician: Dr. Luna History of Present Illness Ms. Galdamez is a very pleasant 73-year-old female without prior cardiac history who presented to the [facility] ER on December 10, 2023 due to concerns of increased fatigue and observed hypotension on home monitoring. Patient lives at home with 24/7 care. Caregiver has observed patient to choke when eating and has observed shortness of breath as well as intermittent wheezing. Unfortunately, the patient is not a reliable source of information. No family members are present at bedside at the time of my evaluation. EKG on presentation revealed sinus bradycardia at 58 bpm with poor R wave progression across the anterior precordial leads and diffuse ST segment abnormality. High- sensitivity troponin negative x 2 at 7.3 then 7.2 pg/mL. B-natriuretic peptide mildly elevated at 378 raising concern for possible congestive heart failure with chest x-ray technically limited, revealing cardiomegaly with pulmonary vascular congestion without overt pulmonary edema. In the ER patient initially received fluid (normal saline solution) then received 20 mg of IV furosemide. Upon evaluation patient was lying supine. She denies difficulty breathing. She denies chest pain. She denies palpitations. 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 No significant arrhythmias observed thus far. Patient states "I am fit as a fiddle." Denies prior cardiac history. Past Medical and Surgical History Cerebrovascular accident with right-sided hemiparesis Hypertension Dyslipidemia GERD Migraines Multiple sclerosis Seizure disorder Anxiety and depression Internal hemorrhoids Cataract extraction Cholecystectomy Family History: Father of aortic aneurysm. Brother with CAD. Mother with breast cancer. Sisters with breast cancer. Social History: [place]. Lives at home. Nonsmoker. No alcohol. Allergies Allergy/AdvReac Type Severity Reaction Status Date / Time azithromycin Allergy Unknown CAN'T Verified 12/11/23 07:40 REMEMBER Penicillins Allergy Unknown CAN'T Verified 12/11/23 07:40 REMEMBER simvastatin Allergy Unknown CAN'T Verified 12/11/23 07:40 REMEMBER baclofen AdvReac Intermediate LETHARGY Verified 12/11/23 07:40 levetiracetam AdvReac Intermediate LETHARGY Verified 12/11/23 07:40 sulfamethoxazole AdvReac Intermediate NAUSEA/VOMI Verified 12/11/23 07:40 [From Bactrim] TING tramadol AdvReac Intermediate TOO Verified 12/11/23 07:40 SLEEPY, LOST APPETITE trimethoprim [From Bactrim] AdvReac Intermediate NAUSEA/VOMI Verified 12/11/23 07:40 TING mirtazapine AdvReac Unknown CAN'T Verified 12/11/23 07:40 REMEMBER Home Medications Medication Instructions Recorded Confirmed Type acetaminophen 500 mg tablet 1,000 mg PO BID 10/28/23 10/28/23 History (Tylenol Extra Strength) aspirin 325 mg tablet,delayed 325 mg PO DAILY 10/28/23 10/28/23 History release citalopram 40 mg tablet (Celexa) 40 mg PO DAILY 10/28/23 10/28/23 History docusate sodium 100 mg capsule 100 mg PO BID 10/28/23 10/28/23 History gabapentin 400 mg capsule 400 mg PO TID 10/28/23 10/28/23 History melatonin 5 mg tablet 5 mg PO HS 10/28/23 10/28/23 History metoprolol succinate 25 mg 25 mg PO DAILY 10/28/23 10/28/23 History tablet,extended release 24 hr multivitamin 1 tab PO DAILY 10/28/23 10/28/23 History ondansetron HCl 8 mg tablet 8 mg PO Q8H PRN NAUSEA/VOMITING 10/28/23 10/28/23 History pantoprazole 40 mg tablet,delayed 40 mg PO DAILY 10/28/23 10/28/23 History release polyethylene glycol 3350 17 17 g PO DAILY PRN Constipation 10/28/23 10/28/23 History gram/dose oral powder (Miralax) potassium chloride 10 mEq 10 meq PO BID 10/28/23 10/28/23 History tablet,extended release(part/cryst) (Klor-Con M) topiramate 100 mg tablet 100 mg PO BID 10/28/23 10/28/23 History acetaminophen 500 mg tablet 1,000 mg PO BID 12/10/23 12/10/23 History (Tylenol Extra Strength) aspirin 325 mg tablet 325 mg PO DAILY 12/10/23 12/10/23 History citalopram 40 mg tablet (Celexa) 40 mg PO DAILY 12/10/23 12/10/23 History gabapentin 400 mg capsule 400 mg PO TID 12/10/23 12/10/23 History melatonin 5 mg tablet 5 mg PO HS 12/10/23 12/10/23 History metoprolol succinate 25 mg 25 mg PO DAILY 12/10/23 12/10/23 History tablet,extended release 24 hr multivitamin 1 tab PO DAILY 12/10/23 12/10/23 History ondansetron HCl 8 mg tablet 8 mg PO Q8H PRN Nausea 12/10/23 12/10/23 History pantoprazole 40 mg tablet,delayed 40 mg PO DAILY 12/10/23 12/10/23 History release polyethylene glycol 3350 17 17 g PO DAILY PRN Constipation 12/10/23 12/10/23 History gram/dose oral powder (Miralax) potassium chloride 10 mEq 10 meq PO BID 12/10/23 12/10/23 History tablet,extended release(part/cryst) (Klor-Con M) topiramate 100 mg tablet 100 mg PO BID 12/10/23 12/10/23 History Patient History Social History Smoking Status: Never smoker Preferred Language: Vietnamese Feels Safe at Home: Yes Review of Systems Review of Systems: A complete and accurate review of systems was unable to be obtained (dementia) Physical Exam Physical Exam: General: Alert to person and place. NAD. Laying supine. HENT: Normocephalic. Atraumatic. Eyes: PER. Conjunctiva pink, sclera clear. Neck: No JVD. No HJR. Bilateral carotid bruits. Heart: RRR, 60 bpm. Soft systolic murmur at the lower left sternal border. No rub. Lungs: Absent breath sounds at the right base. Clear to auscultation ant erolaterally. No rales. Abdomen: +BS. Soft. Nontender. No masses or organomegaly. Extremities: No clubbing, cyanosis, or edema. Neuro: Right sided hemiparesis. + Memory impairment Pulses: radial=2/4, posterior tibial=1/4. Results & Data Vital Signs (Past 12 Hours) Vital Signs Pulse Pulse Resp BP BP Pulse Ox Pulse Ox 12/11/23 06:00 62 21 114/76 96 12/11/23 04:00 61 17 130/70 98 12/11/23 03:53 96 12/11/23 03:00 60 16 132/62 95 12/11/23 01:15 59 L 12/11/23 00:00 58 L 22 144/58 H 95 12/10/23 22:24 58 L 19 140/57 L 97 12/10/23 21:31 57 L 19 114/57 L 97 12/10/23 21:24 59 L 12/10/23 20:34 59 L 18 130/84 95 O2 Del Method O2 Del Method 12/11/23 06:00 Room Air 12/11/23 04:00 Room Air 12/11/23 03:53 Room Air 12/11/23 03:00 Room Air 12/11/23 01:15 12/11/23 00:00 Room Air 12/10/23 22:24 Room Air 05/07/24 21:31 Room Air 12/10/23 21:24 12/10/23 20:34 Room Air Laboratory Results Cardiac Enzymes 12/10/23 12/10/23 Range/Units 16:25 20:11 AST 16 (13-39) U/L Troponin I High Sens 7.2 (0-14) pg/ml B-Natriuretic Peptide 378 H (0-100) pg/ml Coagulation 12/10/23 12/10/23 Range/Units 16:25 20:11 PT 10.1 (9.0-12.0) Seconds APTT 27 (21-31) Seconds B-Natriuretic Peptide 378 H (0-100) pg/ml CBC 12/10/23 12/11/23 Range/Units 16:25 06:14 WBC 8.97 10.13 (4.8-10.8) K/ul RBC 4.64 4.46 (4.20-5.40) M/uL Hgb 13.3 13.0 (12.0-16.0) g/dl Hct 42.5 40.1 (37.0-47.0) % Plt Count 316 251 (130-400) K/uL Neut # (Auto) 5.56 7.27 H (1.40-6.50) K/uL Lymph # (Auto) 2.29 1.83 (1.20-3.40) K/uL [place] # (Auto) 0.64 H 0.65 H (0.11-0.59) K/uL Eos # (Auto) 0.37 0.27 (0.00-0.50) K/uL Baso # (Auto) 0.08 0.06 (0.00-0.20) K/uL Comprehensive Metabolic Panel 12/10/23 12/11/23 Range/Units 16:25 06:14 Sodium 141 141 (136-145) mmol/L Potassium 4.2 4.1 (3.5-5.1) mmol/L Chloride 108 H 109 H (98-107) mmol/L Carbon Dioxide 28 26 (21-32) mmol/L BUN 19 17 (6-23) mg/dl Creatinine 0.87 0.81 (0.6-1.2) mg/dl Glucose 89 95 (70-99(Fasting)) mg/dl Calcium 9.2 8.4 L (8.6-10.3) mg/dl AST 16 (13-39) U/L ALT 10 (7-52) U/L Alkaline Phosphatase 104 (34-104) U/L Total Protein 7.0 (6.0-8.3) gm/dl Albumin 3.7 (3.4-5.0) gm/dl Intake and Output 12/10/23 12/11/23 12/11/23 22:59 06:59 14:59 Intake Total 50 / 50 Balance 50 / 50 Intake: IV 50 / 50 Clindamycin/D5w 600 mg In 50 ml 50 / 50 @ 100 mls/hr IV NOW ONE Rx#: [id number] Sodium Chloride 0.9% 1,000 ml @ 0 / 0 250 mls/hr IV .Q4H [facility] Rx#: [id number] Other: Weight 96.8 kg Weight Measurement Method Built in [facility] Diagnostic Findings Telemetry: Sinus at 60 bpm currently. Mild sinus bradycardia/sinus throughout.
[2023-12-11] MEDS: ASPIRIN 325 MG ECTAB PO SCH (08:45)
[2023-12-11] MEDS: GABAPENTIN 400 MG CAP PO SCH (08:45)
[2023-12-11] MEDS: MULTIVITAMIN TAB PO SCH (08:45)
[2023-12-11] MEDS: CITALOPRAM 40 MG TAB PO SCH (08:45)
[2023-12-11] MEDS: METOPROLOL SUCC 25MG EXT REL TAB PO SCH (08:45)
[2023-12-11] MEDS: PANTOprazole 40 MG TAB PO SCH (08:46)
[2023-12-11] MEDS: TOPIRAMATE 100 MG TAB PO SCH (08:46)
[2023-12-11] MEDS: CLINDAMYCIN HCL 150 MG CAP PO SCH (14:14)
[2023-12-11] MEDS: MELATONIN 3 MG TAB PO SCH (19:35)
[2023-12-11] MEDS: ADVANCED PROBIOTIC 625 MG CAPSULE PO SCH (21:54)
[2023-12-12 06:07] LABS: Hematocrit (blood only) 37.9 % (37.0-47.0); Hemoglobin 12.1 g/dl (12.0-16.0); Mean Corpuscular Hemoglobin 28.8 pg (25.0-34.0); Mean Corpuscular Hgb Conc 31.9 g/dL (32.0-36.0); Mean Corpuscular Volume 90.2 fL (80.0-100.0); Mean Platelet Volume 10.5 fL (9.4-12.4); Platelet Count 236 K/uL (130-400); RDW Coefficient of Variation 13.5 % (11.5-14.5); RDW Standard Deviation 44.2 fL (36.4-46.3); White Blood Count 8.81 K/ul (4.8-10.8)
--- NOTE | 2023-12-12 06:08 | Electrocardiogram Report ---
Test Reason : Blood Pressure : / mmHG Vent. Rate : 058 BPM Atrial Rate : 058 BPM P-R Int : 138 ms QRS Dur : 084 ms QT Int : 484 ms P-R-T Axes : -26 -06 036 degrees QTc Int : 475 ms Sinus bradycardia Inferior infarct , age undetermined Anterolateral infarct , age undetermined Abnormal ECG No previous ECGs available Confirmed by Quinn Lyon ([id number]) on 12/12/2023 6:07:32 AM Referred By: Venessa Cheng Confirmed By:Quinn Lyon
[2023-12-12 06:29] LABS: BUN Creatinine Ratio 18.3 (10-20); Calcium 8.1 mg/dl (8.6-10.3); Creatinine Clr Calc Pharmacy 72.1 ml/min; Est GFR (African American) 82.3 ml/min; Phosphorus 3.5 mg/dl (2.5-4.9); Potassium 3.9 mmol/L (3.5-5.1)
--- NOTE | 2023-12-12 10:44 | Cardiology Progress Note ---
Date of Service December 12, 2023 Assessment & Plan (1) Fatigue: (2) Hypotension: (3) SOB (shortness of breath): Plan 73-year-old female admitted with fatigue, hypotension on home monitoring, possible aspiration pneumonitis. Examination without heart failure decompensation. EKG without acute ST segment change. High-sensitivity troponin negative. Resting echocardiography with preserved LV systolic function without wall motion abnormality or significant valvular heart disease. Recommendations: Continue conservative cardiac medical management. Continue low- dose beta-alycia therapy and aspirin. Recommend statin retrial. Please contact with any questions or concerns. Admission and Anticipated Discharge Date Admission Date: December 11, 2023 Supervising Physician Co-Signing Physician Notes I have reviewed the advanced practitioner's documentation, and I agree with, and take responsibility for the plan of care No acute heart failure exacerbation on exam today. Chronic history of difficulties with choking and coughing with foods and drinking Treatment plan as outlined Subjective Patient seen and examined. Chart, medications, telemetry reviewed. Notes feeling "fabulous." Denies chest pain, palpitations, or shortness of breath. Telemetry: Maintaining sinus rhythm throughout, currently in the 60s December 11, 2023 TTE Interpretation Summary ([facility], Dr. Stern): Normal size LV. Borderline concentric LVH. Normal LV wall motion. EF 55 to 60%. Grade 1 diastolic dysfunction. Mildly dilated left atrium. Moderate aortic valve sclerosis without significant stenosis. Review of Systems Review of Systems: A complete and accurate review of systems was unable to be obtained (dementia) Physical Exam Physical Exam: General: Alert. NAD. Laying supine. HENT: Normocephalic. Atraumatic. Eyes: PER. Conjunctiva pink, sclera clear. Neck: No JVD. Bilateral carotid bruits. Heart: RRR, 60 bpm. Grade II systolic murmur. No rub. Lungs: Absent breath sounds at the right base. Clear to auscultation anterolaterally. No rales. Abdomen: +BS. Soft. Nontender. No masses or organomegaly. Extremities: No clubbing, cyanosis, or significant edema. Neuro: Right sided hemiparesis. + Memory impairment Pulses: radial=2/4, posterior tibial=1/4. Results & Data Vital Signs (Past 12 Hours) Vital Signs Temp Pulse Pulse Resp BP Pulse Ox O2 Del Method 12/12/23 07:27 36.5 C 63 20 111/63 93 Room Air 12/12/23 03:12 36.5 C 91 H 20 136/69 94 Room Air 12/11/23 23:23 61 12/11/23 23:02 36.5 C 60 20 106/68 94 Room Air Laboratory Results CBC 12/12/23 Range/Units 05:21 WBC 8.81 (4.8-10.8) K/ul RBC 4.20 (4.20-5.40) M/uL Hgb 12.1 (12.0-16.0) g/dl Hct 37.9 (37.0-47.0) % Plt Count 236 (130-400) K/uL Comprehensive Metabolic Panel 12/12/23 Range/Units 05:21 Sodium 140 (136-145) mmol/L Potassium 3.9 (3.5-5.1) mmol/L Chloride 109 H (98-107) mmol/L Carbon Dioxide 24 (21-32) mmol/L BUN 15 (6-23) mg/dl Creatinine 0.82 (0.6-1.2) mg/dl Glucose 95 (70-99(Fasting)) mg/dl Calcium 8.1 L (8.6-10.3) mg/dl Intake and Output 12/11/23 12/12/23 12/12/23 22:59 06:59 14:59 Intake Total 120 / 600 Output Total 100 / 1100 350 / 1100 4 / 4 Balance 20 / -500 -350 / -500 -4 / -4 Intake: Oral 120 / 600 Output: Urine Amount (Catheter) 100 / 450 350 / 450 External 100 / 450 350 / 450 # Bowel Movements 4 / 4 Other: Other Intake Source SIPS # Unmeasured Voids 1 Weight 96.8 kg 97.9 kg Weight Measurement Method Built in [facility] Built in [facility]
--- NOTE | 2023-12-12 15:24 | Fluoroscopy Report ---
VIDEO SWALLOW STUDY CLINICAL HISTORY: Aspiration. COMPARISON STUDY: No priors. FLUOROSCOPY TIME: 1.12 minutes. Ka,r: 16.3 mGy FINDINGS: Fluoroscopic guidance is provided to the Department of speech pathology in performing a vid eo swallow study. The patient consumed barium-impregnated pudding, cracker with paste, nectar-thick l iquids, and thin barium while the swallowing mechanism was observed in real-time. Pharyngeal penetrat ion is seen with the thin barium and nectar-thick liquid textures. No aspiration was identified with any of the sampled textures. IMPRESSION: 1. There is pharyngeal penetration with nectar-thick liquids and thin barium. 2. No aspiration was seen with any of the sample textures. 3. See dedicated speech pathology report for detailed findings and recommendations. Dictated: 12/12/2023 11:48 AM Transcribed: 12/12/2023 12:28 PM [facility] [id number] [email or web address] Electronically signed by: Jt Floyd M.D. 12/12/2023 3:22 PM
--- NOTE | 2023-12-12 16:07 | Discharge Summary ---
Date of Service December 12, 2023 Admission HPI Per Admitting Provider History obtained from patient and records. Medical history significant for hypertension, hyperlipidemia/statin intolerance, CVA, PVD, seizure disorder, multiple sclerosis, GERD, anxiety/mood disorder. Caregiver has not this patient choking on things for the last few weeks. Shortness of breath with intermittent wheezing symptoms at home. Patient denies chest pain. Patient not sure about weight gain. Achy headache symptoms from migraine as per patient.. Patient more tired than usual. Low blood pressure noted at home. SBP 50s to 80s. Patient seen at PCP's office yesterday. SBP 100s, O2 sats noted to be 80s. Patient noted to be lethargic. Patient transported to ER by EMS. IV Lasix administered at the ER. 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 Admission Exam Per Admitting Provider GENERAL: Comfortable, pleasant, obese, dysarthric (chronic), no respiratory distress SKIN: Normal color, warm HEENT: [place] palpebral conjunctivae, no ptosis, dry buccal mucosa NECK : Supple, short neck, no tenderness CHEST : CTA, no tenderness HEART : Bradycardic, no obvious murmurs ABDOMEN: Some distention, nontender EXTREMITIES : No LE swelling, no LE tenderness, no other conspicuous deformities noted NEUROLOGIC : Coherent, no facial asymmetry, dysarthric, gait and stance not assessed Principal Diagnosis Aspiration pneumonia Discharge Exam GENERAL: Comfortable, pleasant, obese, dysarthric (chronic), no respiratory distress SKIN: Normal color, warm HEENT: NC/AT NECK : Supple CHEST : CTA, no tenderness HEART : RRR, no obvious murmurs ABDOMEN: Some distention, soft, nontender EXTREMITIES : No LE swelling, no LE tenderness NEUROLOGIC : Coherent, no facial asymmetry, dysarthric, gait and stance not assessed Discharge Data Allergies Allergy/AdvReac Type Severity Reaction Status Date / Time azithromycin Allergy Unknown CAN'T Verified 12/11/23 07:40 REMEMBER Penicillins Allergy Unknown CAN'T Verified 12/11/23 07:40 REMEMBER simvastatin Allergy Unknown CAN'T Verified 12/11/23 07:40 REMEMBER baclofen AdvReac Intermediate LETHARGY Verified 12/11/23 07:40 levetiracetam AdvReac Intermediate LETHARGY Verified 12/11/23 07:40 sulfamethoxazole AdvReac Intermediate NAUSEA/VOMI Verified 12/11/23 07:40 [From Bactrim] TING tramadol AdvReac Intermediate TOO Verified 12/11/23 07:40 SLEEPY, LOST APPETITE trimethoprim [From Bactrim] AdvReac Intermediate NAUSEA/VOMI Verified 12/11/23 07:40 TING mirtazapine AdvReac Unknown CAN'T Verified 12/11/23 07:40 REMEMBER Consultations 12/11/23 00:18 ED Decision to Admit Stat 12/11/23 03:34 Consult Cardiology Routine Ordered Studies 12/10/23 16:16 CT head/brain wo con Stat FINDINGS: No acute intracranial hemorrhage. No midline shift or mass effect. Encephalomalacia in the LEFT MCA territory, consistent with old infarct. Age-related cerebral volume loss. Periventricular and subcortical white matter hypoattenuation, consistent with chronic microangiopathy. The visualized orbits appear grossly unremarkable. The calvarium is intact. The visualized paranasal sinuses and mastoid air cells are grossly clear. IMPRESSION: No acute intracranial hemorrhage, midline shift, or mass effect. Encephalomalacia in the LEFT MCA territory, consistent with old infarct. 12/12/23 09:30 FL video swallow Routine FINDINGS: Fluoroscopic guidance is provided to the Department of speech pathology in performing a video swallow study. The patient consumed barium- impregnated pudding, cracker with paste, nectar-thick liquids, and thin barium while the swallowing mechanism was observed in real-time. Pharyngeal penetration is seen with the thin barium and nectar-thick liquid textures. No aspiration was identified with any of the sampled textures. IMPRESSION: 1. There is pharyngeal penetration with nectar-thick liquids and thin barium. 2. No aspiration was seen with any of the sample textures. 3. See dedicated speech pathology report for detailed findings and recommendations. Hospital Course (1) SOB (shortness of breath): Medical history significant for hypertension, hyperlipidemia/statin intolerance, CVA, PVD, seizure disorder, multiple sclerosis, GERD, anxiety/mood disorder. Low blood pressure noted at home. SBP 50s to 80s. Patient seen at PCP's office- SBP 100s, O2 sats noted to be 80s. Patient noted to be lethargic. Aspiration pneumonia Noted episodes of chocking per hx Concern for poss. CHF due to elev. BNP and some pulm. vasc. congestion on CXR Pt started on clindamycin on admission Speech eval obtained - discussed results and recommendations with the pt. Currently feeling much better, and would like to be discharged. She is on RA, saturating 93%. Denies any shortness of breath, or chest pain. Cardiology consulted for poss. CHF received small dose lasix in ER Echo obtained - LV is normal in size. There is borderline concentric LVH. LV wall motion is abnormal. LVEF 55 to 60%. Grade 1 diastolic dysfunction. LA is mildly dilated. Aortic valve sclerosis moderate, without significant aortic valvular stenosis. No concern for CHF , per cardiology - cont. current medications - beta-alycia, ASA, recommend to re-try statin By CMS guidelines, a determination that the admission or continued stay is not medically necessary has been made by a member of the UR committee and a physician for this hospital stay, therefore a Code 44 will be completed and the Inpatient admission will be changed to outpatient. Total Time Total Time Spent Total Time Spent (In Minutes): 40 Discharge Plan Discharge Items Patient Disposition: Home - Self-Care Reason For Visit: CHF Discharge Diagnosis: Aspiration pneumonia Activity: Per Instructions section Non-emergency contact: Primary Care Provider Call non-emergency contact if: you have any medication questions and your symptoms worsen Follow-up/Referrals: Gregorio Perez MD [Outside Practitioners] - (Date & Time 12/17/2023 9:00 AM Provider Yin Pepper PA-C Department [facility] ) Diet: Heart Healthy Diet Texture: Easy to Chew Addtl Attending Provider Instructions: Follow up with your primary care physician within 1 week. The appointment was scheduled for you for 12/17/2023. Finish antibiotic treatment with clindamycin as prescribed. Also recommend taking probiotic. You were seen by speech therapist - please follow their recommendations to prevent aspiration. Pending Studies at Discharge: No Stand-Alone Forms: My [employer], Smoking Cessation Medications and DC Order Prescriptions: New clindamycin HCl 150 mg Capsule 600 mg PO TID 6 Days Qty: 72 0RF Advanced Probiotic 625 mg (10 billion cell) Capsule 1 cap PO DAILY Qty: 10 0RF Continued multivitamin Tablet 1 tab PO DAILY citalopram [Celexa] 40 mg Tablet 40 mg PO DAILY aspirin 325 mg Tablet 325 mg PO DAILY ondansetron HCl 8 mg Tablet 8 mg PO Q8H PRN (Reason: Nausea) gabapentin 400 mg Capsule 400 mg PO TID acetaminophen [Tylenol Extra Strength] 500 mg Tablet 1,000 mg PO BID pantoprazole 40 mg Tablet,Delayed Release (Dr/Ec) 40 mg PO DAILY metoprolol succinate 25 mg Tablet Extended Release 24 Hr 25 mg PO DAILY polyethylene glycol 3350 [Miralax] 17 gram/dose Powder 17 g PO DAILY PRN (Reason: Constipation) Rx Instructions: MIX WITH 8 OZ. FLUID topiramate 100 mg Tablet 100 mg PO BID potassium chloride [Klor-Con M10] 10 mEq Tablet,Er Particles/Crystals 10 meq PO BID melatonin 5 mg Tablet 5 mg PO HS multivitamin Tablet 1 tab PO DAILY citalopram [Celexa] 40 mg Tablet 40 mg PO DAILY ondansetron HCl 8 mg tablet 8 mg PO Q8H PRN (Reason: NAUSEA/VOMITING) gabapentin 400 mg capsule 400 mg PO TID acetaminophen [Tylenol Extra Strength] 500 mg Tablet 1,000 mg PO BID aspirin 325 mg tablet,delayed release (DR/EC) 325 mg PO DAILY pantoprazole 40 mg tablet,delayed release (DR/EC) 40 mg PO DAILY docusate sodium 100 mg Capsule 100 mg PO BID metoprolol succinate 25 mg tablet extended release 24 hr 25 mg PO DAILY polyethylene glycol 3350 [Miralax] 17 gram/dose Powder 17 g PO DAILY PRN (Reason: Constipation) topiramate 100 mg Tablet 100 mg PO BID potassium chloride [Klor-Con M10] 10 mEq tablet,ER particles/crystals 10 meq PO BID melatonin 5 mg Tablet 5 mg PO HS Discharge Orders: Discharge Order (Routine); Ordered 12/12/23 Ordered By: Tulio Wright/Other Patient Handouts: Dysphagia Aspiration Admission Data Admit Date/Time: 12/11/23 01:11 Attending Provider: Tulio Luna Admit Provider: Gregorio Butler Primary Care Provider: Venessa Cheng Other Providers: Gregorio Butler Other Interventions: Discharge Summary Assessment (RN) Last Done: 12/12/23 17:02
--- NOTE | 2023-12-12 16:19 | Communication Note ---
Date of Service: December 12, 2023 code 44 attestation By CMS guidelines, a determination that the admission or continued stay is not medically necessary has been made by a member of the UR committee and a physician for this hospital stay, therefore a Code 44 will be completed and the Inpatient admission will be changed to outpatient. Dr Duran Giles Member UR Committee
== END 2023-12-12 18:01 | disposition home or self-care (01) | DRG 178 ==
LOC: ED 16:06 → INTOOBSV 12-11 01:11 → MERGE 12-11 01:11 → EDINP 12-11 01:11 → 2S 12-11 03:35